=== PATIENT | female | born 1960 | race Caucasian/White ===

== ENCOUNTER 2023-04-15 19:22 | Emergency (ER) | payer SELFPAY ==
[2023-04-15 20:16] VITALS: BP 109/69; PULSE 60; RESP 17; TEMP 98.1; BMI 33.6
[2023-04-15] MEDS ORDERED: ONDANSETRON 4 MG/2 ML VIAL IVPUSH ONE (20:35)
[2023-04-15] MEDS ORDERED: MECLIZINE HCL 25 MG TABLET (FP) PO ONE (20:35)
[2023-04-15] MEDS ORDERED: ONDANSETRON 4 MG/2 ML VIAL ONE ×2 (20:52)
[2023-04-15] MEDS ORDERED: MECLIZINE HCL 25 MG TABLET (FP) ONE (20:52)
[2023-04-15 21:13] LABS: BASO % 0.8 % (0-2.0); EOS % 0.7 % (0-4.5); HEMATOCRIT 41.8 % (32.4-45.2); HEMOGLOBIN 14.3 GM/dL (10.7-15.3); LYMPH % 9.4 % (8-40); MCH 30.3 pg (25.7-33.7); MCHC 34.3 g/dl (32.0-36.0); MEAN CELL VOLUME 88.3 fl (80-96); MEAN PLT VOLUME 10.3 fl (7.5-11.1); MONO % 5.5 % (3.8-10.2); NEUT % 83.6 % (42.8-82.8); PLATELET COUNT 178 10^3/uL (134-434); RBC 4.73 M/mm3 (3.60-5.2); RDW 14.3 % (11.6-15.6); WHITE BLOOD COUNT 10.6 K/mm3 (4.0-10.0)
[2023-04-15 21:44] LABS: CALCIUM 8.7 mg/dL (8.5-10.1)
[2023-04-15 21:45] LABS: ALBUMIN 3.7 g/dl (3.4-5.0); BLOOD UREA NITROGEN 21.8 mg/dL (7-18)
[2023-04-15 21:47] LABS: CREATININE 0.9 mg/dL (0.55-1.3)
[2023-04-15 21:48] LABS: BILIRUBIN,TOTAL 0.4 mg/dL (0.2-1)
== END 2023-04-15 23:35 | disposition home or self-care (01) ==
LOC: JER 19:22
PROC: 3E033NZ Introduction of Analgesics, Hypnotics, Sedatives into Peripheral Vein, Percutaneous Approach (ICD-10-PCS; principal; 2023-04-15)
DX: R73.9 Hyperglycemia, unspecified (principal); R42 Dizziness and giddiness; R11.10 Vomiting, unspecified
CPT/HCPCS: 36415; 70450-TC; 71045-TC-FY; 80053; 84484; 85025; 93005; 93010; 99285-25